=== PATIENT | female | born 1995 | race Caucasian/White ===

== ENCOUNTER → 2020-12-05 | Outpatient (CLI) | payer OTHER ==
--- NOTE | 2020-12-05 16:47 | US ---
EXAMINATION TYPE: US pelvic complete DATE OF EXAM: 12/05/2020 COMPARISON: NONE CLINICAL HISTORY: R10.2 pelvic pain. TECHNIQUE Transabdominal sonographic images of the pelvis were acquired. Transvaginal sonographic im ages were medically necessary to better assess the following anatomy: Date of LMP: 12-04-20 EXAM MEASUREMENTS: Uterus: 7.8 x 3.3 x 3.9 cm Endometrial Stripe: 0.3 cm Right Ovary: 2.5 x 1.1 x 1.2 cm Left Ovary: 1.8 x 1.1 x 1.1 cm 1. Uterus: Anteverted wnl 2. Endometrium: wnl 3. Right Ovary: wnl 4. Left Ovary: wnl 5. Bilateral Adnexa: wnl 6. Posterior cul-de-sac: Within normal limits IMPRESSION: 1. Unremarkable sonographic study of the pelvis. No free fluid. Endometrial stripe is within normal l imits.
== END | disposition home or self-care (01) ==
LOC: RADUSWWP 14:34
PROVIDERS: ATTEND Obstetrics & Gynecology
DX: R10.2 Pelvic and perineal pain (principal)
CPT/HCPCS: 76856